=== PATIENT | female | born 1930 | race Caucasian/White ===

== ENCOUNTER → 2018-02-23 | Outpatient (CLI) | payer MEDICARE ==
[2018-02-23 12:15] LABS: MICROSCOPIC AUTO
[2018-02-23 12:17] LABS: CULTURE INDICATED? YES
== END | disposition home or self-care (01) ==
LOC: CFH 10:29
PROVIDERS: ATTEND Physician Assistant
DX: I10 Essential (primary) hypertension (principal); E11.9 Type 2 diabetes mellitus without complications; E03.9 Hypothyroidism, unspecified; E78.1 Pure hyperglyceridemia; J45.909 Unspecified asthma, uncomplicated; N39.0 Urinary tract infection, site not specified; R31.9 Hematuria, unspecified; M25.562 Pain in left knee; M25.561 Pain in right knee
CPT/HCPCS: 81001; 87077; 87086; 87186